=== PATIENT | female | born 1995 | race African-American/Black ===

== ENCOUNTER 2020-06-22 19:18 | Emergency (ER) | payer OTHER ==
[~2020-06-22] VITALS: Ht 167.6 cm; Wt 70.8 kg
--- NOTE | 2020-06-22 19:20 | NUR ---
BIB MOM C/O BIZARRE BEHAVIOR WITH FLIGHT OF IDEAS. "PLEASE CAN YOU TAKE ME TO MY DOCTOR". PT DENEIS SI/HI. PT CALM AND COOPERATIVE AT THIS TIME. PT REFUSING TO PROVIDE URINE SAMPLE AT THIS TIME. PLACE PT ON HOSPITAL GOWN, ALL BELONGINGS REMOVED AND PLACED IN A LOCKED HOSPITAL LOCKER. 1:1 SITTER AT BEDSIDE FOR PT SAFETY.
--- NOTE | 2020-06-22 19:43 | NUR ---
PT GOT OUT OF BED WALKING AROUND, REFUSING TO STAY IN BED AND KEEPS WANTING TO CALL VANDANA. PT REMAINS TO HAVE FLIGHTS OF IDEAS AND HEARING VOICES TELL HER TO GO SEE HER DOCTOR VANDANA WILKERSON. PT WAS VERY EMOTIONAL TAKING ABOUT HER GRANDMOTHER THAT HAD RECENTLY. PT WAS ASSISTED BACK TO BED AND AGREEING TO STAY IN BED AT THIS TIME. ER PA MADE AWARE OF PT BEHAVIOR.
--- NOTE | 2020-06-22 20:51 | NUR ---
PT PACING AROUND REFUSING TO GO BACK TO BED. PT CALLED 911 FROM THE ER PHONE. ASSISTED PT BACK TO BED. 1 WRIST RESTRAINTS APPLIED PER ER PA ORDER. ORDERS RECEIVED. WILL MEDICATE PT. PT REMIANS TO BE VERY UNCOOPERATIVE, REFUSING BLOOD DRAWN AND PROVIDE URINE SAMPLE. 1:1 SITTER REMAINS AT BEDSIDE. WILL CONTINUE TO MONITOR PT CLOSELY.
[2020-06-22] MEDS ORDERED: OLANZAPINE 10 MG VIAL IM ONE ×4 (20:58→23:00)
--- NOTE | 2020-06-22 21:32 | NUR ---
PT SCREAMING, UNCOOPERATIVE, CRYING. PT REFUSING TO COOPERATE AND BECAME COMBATIVE KICKING [address] PT ON BILATERAL WRIST RESTRAINTS ORDERED BY ER PA. WILL CONTINUE TO MONITOR PT. 1:1 SITTER REMAINS AT BEDSIDE FOR TP SAFETY.
[2020-06-22] MEDS ORDERED: LORAZEPAM INJ 2 MG/ML VIAL ONE (21:35)
[2020-06-22] MEDS ORDERED: diphenhydrAMINE HCL 50 MG/ML VIAL ONE (21:35)
[2020-06-22] MEDS ORDERED: diphenhydrAMINE HCL 50 MG/ML VIAL IM ONE (22:00)
[2020-06-22] MEDS ORDERED: LORAZEPAM INJ 2 MG/ML VIAL IM ONE (22:00)
--- NOTE | 2020-06-22 22:53 | NUR ---
PT REMAINS VERY UNCOOPERATIVE, SCREAMING, REFUSING BLOOD DRAW. ORDERS RECEIVED FROM ER DARRELL SANCHEZ. WILL MEDICATE PT ORDERED.
--- NOTE | 2020-06-22 23:04 | NUR ---
PT MEDICATED ORDERED.
[2020-06-22 23:54] LABS: BASOPHILS # (AUTO) 0.1 /CMM (0.0-0.2); BASOPHILS % (AUTO) 0.9 % (0.0-2.0); EOSINOPHILS % (AUTO) 0.5 % (0.0-6.0); HEMATOCRIT 33 % (33-45); HEMOGLOBIN 10.6 g/dL (11.5-14.8); LYMPHOCYTES % (AUTO) 17.6 % (20.0-44.0); MEAN CORPUSCULAR HGB CONC 32 g/dl (31.0-36.0); MEAN CORPUSCULAR VOLUME 78 fL (82-100); MONOCYTES # (AUTO) 0.6 /CMM (0.1-1.30); MONOCYTES % (AUTO) 10.4 % (2.0-12.0); NEUTROPHILS # (AUTO) 4.2 /CMM (1.8-8.9); NEUTROPHILS % (AUTO) 70.6 % (43.0-81.0); PLATELET COUNT (AUTO) 364 /CMM (150-450); RED BLOOD CELL COUNT(AUTO) 4.24 MIL/uL (4.0-5.2); WHITE BLOOD COUNT (AUTO) 5.9 K/uL (4.3-11.0)
--- NOTE | 2020-06-22 23:55 | NUR ---
CALL FROM LAB. RAPID COVID NEGATIVE.
[2020-06-23] LABS: CALCIUM, SERUM 9.3 mg/dL (8.5-10.1); CARBON DIOXIDE 24 mmol/L (21-32); CHLORIDE 103 mmol/L (98-107); CREATININE 0.9 mg/dL (0.6-1.3); GLUCOSE 99 mg/dL (74-106); POTASSIUM 3.4 mmol/L (3.5-5.1); SODIUM SERUM 138 mmol/L (136-145); UREA NITROGEN, BLOOD 12 mg/dL (7-18)
[2020-06-23 00:06] LABS: ALANINE AMINOTRANSFERASE 25 U/L (12-78); ALBUMIN 3.7 g/dL (3.4-5.0); ALCOHOL, BLOOD < 3 mg/dL (0-0); ALKALINE PHOSPHATASE 62 U/L (46-116); ASPARTATE AMINOTRANSFERASE 25 U/L (15-37); BILIRUBIN,DIRECT 0.1 mg/dL (0.0-0.2); BILIRUBIN,TOTAL 0.4 mg/dL (0.2-1.0); TOTAL PROTEIN, SERUM 8.1 g/dL (6.4-8.2)
[2020-06-23 00:07] LABS: ACETAMINOPHEN 0 ug/ml (10-30)
--- NOTE | 2020-06-23 01:52 | NUR ---
PT ASLEEP, NO ACUTE DISTRESS NOTED, ERSP EVEN AND UNLABORED. NO PAIN OR DISCOMFORT NOTED AT THIS TIME. 1:1 SITTER REMAINS AT BEDSIDE.
--- NOTE | 2020-06-23 02:30 | NUR ---
URINE COLLECTED AND SENT TO LAB
[2020-06-23 02:47] LABS: BILIRUBIN,URINE NEGATIVE (NEGATIVE); COLOR,URINE YELLOW (YELLOW); LEUKOCYTE ESTERASE ,URINE NEGATIVE (NEGATIVE); NITRITE, URINE NEGATIVE (NEGATIVE); PROTEIN,URINE NEGATIVE (NEGATIVE); UGLUCOSE NEGATIVE (NEGATIVE); UROBILINOGEN,URINE 0.2 EU/dL (0.2)
[2020-06-23 02:53] LABS: BACTERIA,URINE None seen /HPF (None Seen); MUCUS,URINE Few /LPF (None Seen); RBC,URINE 0-2 /HPF (0-2); SQUAMOUS EPITHELIAL CELL,UR Many /HPF (None Seen); WBC,URINE 0-2 /HPF (0-3)
--- NOTE | 2020-06-23 03:59 | NUR ---
PT ASLEEP, NO ACUTE DISTRESS NOTED, ERSP EVEN AND UNLABORED. NO PAIN OR DISCOMFORT NOTED AT THIS TIME. 1:1 SITTER REMAINS AT BEDSIDE.
--- NOTE | 2020-06-23 05:56 | NUR ---
PT ASLEEP, NO ACUTE DISTRESS NOTED, ERSP EVEN AND UNLABORED. NO PAIN OR DISCOMFORT NOTED AT THIS TIME. CALL LIGHT WITHIN REACH. WILL CONTINUE TO MONITOR.
--- NOTE | 2020-06-23 07:09 | NUR ---
REPORT GIVEN TO AM SHIFT BOOGIE TONEY.
[2020-06-23 07:15] VITALS: BP 120/73
--- NOTE | 2020-06-23 07:15 | NUR ---
ASSESSED PT ON BED AWAKE AND ALERT. PT ACCOMPANIED TO RESTROOM WITH SITTER, PT IS AAOX4, NOT IN RESPIRATORY DISTRESS, V/S STABLE. KEPT RESTED AND COMFORTABLE. WILL CONTINUE TO MONITOR.
--- NOTE | 2020-06-23 07:20 | NUR ---
PT STATED SHE WANTS TO GO HOME AND SHE IS NOT SUICIDAL OR HOMICIDAL AND JUST WANT TO GO HOME TO SEE HER DOCTOR. CRISIS BEAM SAW OPERATOR AWARE.
--- NOTE | 2020-06-23 07:44 | NUR ---
PT JOHANNE TAPIA TRIED TO STOP HER BUT PT PUSH THE SITTER AND TRY TO KICK HER. AWARE.
== END 2020-06-23 07:46 | disposition left against medical advice (07) ==
LOC: ER 19:21
DX: R46.2 Strange and inexplicable behavior (principal); R45.1 Restlessness and agitation; J45.909 Unspecified asthma, uncomplicated; G47.00 Insomnia, unspecified; Z20.822 Contact with and (suspected) exposure to COVID-19
CPT/HCPCS: 36415; 80048; 80076; 80299; 80307; 80320; 81001; 84703; 85025; 87426; 96372 ×2; 99285; C9803; J1200; J2060; J3490 ×2; G0480

== ENCOUNTER 2020-06-24 12:50 | Emergency (ER) | payer OTHER ==
[~2020-06-24] VITALS: Ht 172.7 cm; Wt 65.8 kg
--- NOTE | 2020-06-24 12:50 | NUR ---
PT BIB MOM C/O SUICIDAL IDEATION. NO PLAN SPECIFIC PLAN. PT IS AAOX3, NOT IN RESPIRATORY DISTRESS, V/S STABLE, KEPT RESTED AND COMFORTABLE. WILL CONTINUE TO MONITOR.
--- NOTE | 2020-06-24 13:10 | NUR ---
URINE SPECIMEN COLLECTED AND SENT TO LAB.
--- NOTE | 2020-06-24 13:24 | NUR ---
ER PHLEB AT BEDSIDE FOR BLOOD DRAW.
[2020-06-24 13:40] LABS: BASOPHILS # (AUTO) 0.1 /CMM (0.0-0.2); BASOPHILS % (AUTO) 1.2 % (0.0-2.0); EOSINOPHILS % (AUTO) 0.7 % (0.0-6.0); HEMATOCRIT 36 % (33-45); HEMOGLOBIN 11.4 g/dL (11.5-14.8); LYMPHOCYTES # (AUTO) 2.1 /CMM (0.8-4.8); LYMPHOCYTES % (AUTO) 31.1 % (20.0-44.0); MEAN CORPUSCULAR HGB CONC 32 g/dl (31.0-36.0); MEAN CORPUSCULAR VOLUME 79 fL (82-100); MONOCYTES # (AUTO) 0.7 /CMM (0.1-1.30); MONOCYTES % (AUTO) 10.1 % (2.0-12.0); NEUTROPHILS # (AUTO) 3.8 /CMM (1.8-8.9); NEUTROPHILS % (AUTO) 56.9 % (43.0-81.0); PLATELET COUNT (AUTO) 424 /CMM (150-450); RED BLOOD CELL COUNT(AUTO) 4.55 MIL/uL (4.0-5.2); WHITE BLOOD COUNT (AUTO) 6.7 K/uL (4.3-11.0)
[2020-06-24 13:45] LABS: BILIRUBIN,URINE SMALL (NEGATIVE); COLOR,URINE YELLOW (YELLOW); LEUKOCYTE ESTERASE ,URINE NEGATIVE (NEGATIVE); NITRITE, URINE NEGATIVE (NEGATIVE); PROTEIN,URINE TRACE mg/dl (NEGATIVE); UGLUCOSE NEGATIVE (NEGATIVE); UROBILINOGEN,URINE 0.2 EU/dL (0.2)
[2020-06-24 13:55] LABS: CALCIUM, SERUM 9.6 mg/dL (8.5-10.1); CARBON DIOXIDE 23 mmol/L (21-32); CHLORIDE 103 mmol/L (98-107); CREATININE 0.9 mg/dL (0.6-1.3); GLUCOSE 104 mg/dL (74-106); POTASSIUM 3.3 mmol/L (3.5-5.1); SODIUM SERUM 140 mmol/L (136-145); UREA NITROGEN, BLOOD 17 mg/dL (7-18)
[2020-06-24 14:01] LABS: ACETAMINOPHEN 0 ug/ml (10-30); ALANINE AMINOTRANSFERASE 28 U/L (12-78); ALCOHOL, BLOOD < 3 mg/dL (0-0); ALKALINE PHOSPHATASE 70 U/L (46-116); ASPARTATE AMINOTRANSFERASE 38 U/L (15-37); BILIRUBIN,DIRECT 0.1 mg/dL (0.0-0.2); BILIRUBIN,TOTAL 0.4 mg/dL (0.2-1.0); TOTAL PROTEIN, SERUM 8.4 g/dL (6.4-8.2)
[2020-06-24 14:20] LABS: BACTERIA,URINE Few /HPF (None Seen); RBC,URINE 0-2 /HPF (0-2); SQUAMOUS EPITHELIAL CELL,UR Many /HPF (None Seen); WBC,URINE 0-2 /HPF (0-3)
--- NOTE | 2020-06-24 15:31 | NUR ---
CALLED [facility] [phone]
--- NOTE | 2020-06-24 16:26 | NUR ---
2:20pm SW consult requested by ED RN Markie as patient presented to [facility] ED with suicidal ideation. Patient is a 24-year-old female. Patient is alert and oriented x3. Patient initially presented to [facility] ED on 06/22/2020 for bizarre behavior, patient was aggressive with ED staff and eloped from the facility on 06/23 approximately at 7am. Patient presented today with patients mother for medical clearance as patient is suicidal. Patient began to report to this SW that the patient was missing various things in her life. Patient reports that she was ready to let everything go. Patient was not able to explain what she meant to this. Patient reports having inconstant sleep and a poor appetite. Patient repeated several times throughout this assessment that I am tired of dealing with problems and people and kept stating I want to let everything go. When SW asked patient if she was suicidal patient reported that she was, when asked patients plan patient began to state, I am going to waste everyones time. Patient is not able to answer questions clearly. SW inquired regarding mental health diagnosis patient responded with self-diagnosis of wasting peoples time. Patient reported auditory hallucination of a voice telling the patient to calm down and to trust herself. Patient reported visual hallucinations of previous dreams she has had. Patient reported a history of psychiatric hospitalization approximately last year in [facility], patient could not give specific information regarding a hospital, diagnosis, and reported no one in her family knows about this. Patient and SW discussed voluntary hospitalization and patient was agreeable; however, patient did not want this SW to begin the referral process for her. Patient followed up stating I want to go home. I am afraid of being alone. Patient expressed wanting mother to be at bedside. Patient asked this SW to talk to Dr. Jean [phone], patients psychiatrist and SW attempted at bedside per patients request. SW could not speak with Dr. Jean. Patient then asked this SW to call a different number [phone] and this was patients mother. Patient then asked this SW to call [phone] because she was feeling unsafe at [facility] ED. SW asked the patient to elaborate and patient was not able to provide more information. Patient based on responses presented to be paranoid. Patients thought process was unclear. Patient expressed wanting mother to be at bedside. SW informed patient that due to COVID-19 protocols mother cannot be in the ED however SW will ask for a quick visit if allowed. Plan: SW to gather more concrete information from patients mother. SW remains available for all needs regarding this patient.
--- NOTE | 2020-06-24 16:39 | NUR ---
3pm SW met with patients mother to gather more collateral information. Patients mother reported to this SW that the patient is not herself. Patient reported that prior to patient presenting to [facility] ED on 06/22 patients mentor from [facility] Dr. Jean (therapist/professor) made a welfare check for this patient. Dr. Jean raised concerns to patients mother. Patients mother informed this SW that following patients initial visit on 06/22 patients mother made an appointment with [facility] for 06/24 at 9am. Patients mother reported patient expressed wanting to go get fresh air on the roof and mother became concerned for patients safety. Mother then received a text from patient stating that she did not want to follow through with [facility] appointment and would not return patients mothers call. Patients mother then received a call from Dr. Jean stating that the patient was at her home and Dr. Jean expressed more concerns regarding the patient. Patients mother brought the patient today 06/24 back to [facility] ED hoping a crisis weatherstrip machine operator would further evaluate the patient as the patient does not make sense and has raised several concerns to patients close network. SW provided active listening and acknowledgement regarding patient's mother's feelings. SW explained to patient's mother plan for next steps. Plan: SW to present findings with Dr. Rice regarding this SW assessment findings. SW to ask ED physician Dr. Rice and raw silk grader Gener if patient's mother can have a quick visit following strict COVID-19 protocols.
--- NOTE | 2020-06-24 16:41 | NUR ---
3:30pm SW spoke with Dr. Rice and SW presented this SW assessment findings. Dr. Rice in agreement with this SW and Dr. Vaz (initial ED physician) for psychology clinician to be called for further evaluation. Dr. Rice and ED content analyst Gener agreed patient's mother can visit with the patient for a short period following COVID-19 protocols to reassure patient that mother supports the patient. SW to arrange for patient's mother to meet with the patient for a short time.
--- NOTE | 2020-06-24 16:44 | NUR ---
YAMILKA asked biofuels engineering managerCristobal Valdez to call [employer] for further evaluation. biofuels engineering managerCristobal Valdez understood and called [employer] for further evaluation. Addendum: 06/24/20 at 1646 by STANTON PRATHER Time correction 3:30pm
--- NOTE | 2020-06-24 16:46 | NUR ---
3:30 pm SW arrange for patient's mother to meet with patient for a short time. Patient and mother agreeable that COVID-[address] and visit will be short. Mother also informed this SW that following this visit, mother will be waiting in the car while keypunch operators supervisor evaluate this patient. SW remains available for all needs regarding this patient.
[2020-06-24] MEDS ORDERED: LORAZEPAM 1 MG TABLET PO ONE (18:00)
[2020-06-24] MEDS ORDERED: LORAZEPAM 1 MG TABLET ONE (18:20)
--- NOTE | 2020-06-24 21:50 | NUR ---
faxed covid result to [facility] [phone] (fax number)
--- NOTE | 2020-06-24 22:03 | NUR ---
PT ACCEPTED AT [facility] ACCEPTING MD CHOW PHONE NUMBER FOR REPORT ROOM # [id number]-A
--- NOTE | 2020-06-24 22:07 | NUR ---
REPORT CALLED TO [facility] BOOGIE NOBLES. WILL CALL FOR TRANSPORT.
--- NOTE | 2020-06-24 22:24 | NUR ---
SPOKE TO SHIVANI FROM [facility] RES NUMBER IS [id number]
--- NOTE | 2020-06-24 22:38 | NUR ---
AMBULANCE [id number]
[2020-06-24 22:59] VITALS: BP 126/79
--- NOTE | 2020-06-24 23:29 | NUR ---
pipe testing technician AT BED SIDE TO [facility] THE PT
--- NOTE | 2020-06-24 23:38 | NUR ---
PT WAS TRANSFERRED TO [facility] VIA GURNEY IN STABLE CONDITION. ALL BELONGINGSPICKED UP BY THE patient relations liaison.
== END 2020-06-24 23:41 ==
LOC: ER 12:54
DX: F32.9 Major depressive disorder, single episode, unspecified (principal); R45.851 Suicidal ideations; F12.10 Cannabis abuse, uncomplicated; J45.909 Unspecified asthma, uncomplicated; D50.9 Iron deficiency anemia, unspecified; Z20.822 Contact with and (suspected) exposure to COVID-19
CPT/HCPCS: 36415; 80048; 80076; 80299; 80307; 80320; 81001; 84703; 85025; 87426; 99285; C9803; G0480

== ENCOUNTER 2022-10-26 22:20 | Emergency (ER) | payer OTHER ==
[~2022-10-26] VITALS: Ht 172.7 cm; Wt 65.8 kg
--- NOTE | 2022-10-26 22:45 | NUR ---
seen at , neg (covid/flu/strep/mono), c/o cough and swollen tonsils. fever in triage 101.0 orally. axo4. ambulatory. mother at bedside.
--- NOTE | 2022-10-26 22:52 | NUR ---
DR. AJ AT BEDSIDE
[2022-10-26] MEDS ORDERED: IPRATROPIUM NEB FS 0.5 MG/2.5 ML AMPUL.NEB NEB ONE (23:00)
[2022-10-26] MEDS ORDERED: IV NS 0.9% 1,000 ML IV ONE (23:00)
[2022-10-26] MEDS ORDERED: ALBUTEROL FS 2.5 MG/3 ML VIAL.NEB NEB ONE (23:00)
[2022-10-26] MEDS ORDERED: methylPREDNISolone SOD SUCC 125 MG/2ML VIAL IV ONE (23:00)
[2022-10-26] MEDS ORDERED: ACETAMINOPHEN ES 500 MG TABLET PO ONE (23:00)
--- NOTE | 2022-10-26 23:10 | NUR ---
20G IV STARTED ON L AC
[2022-10-26] MEDS ORDERED: methylPREDNISolone SOD SUCC 125 MG/2ML VIAL ONE (23:12)
[2022-10-26] MEDS ORDERED: ACETAMINOPHEN ES 500 MG TABLET ONE (23:12)
[2022-10-26] MEDS ORDERED: ONDANSETRON HCL/PF 4 MG/2 ML VIAL ONE (23:12)
--- NOTE | 2022-10-26 23:21 | NUR ---
MED ADMINISTERED ORDERED
--- NOTE | 2022-10-26 23:27 | NUR ---
RT CALLED FOR BREATHING TREATMENT
[2022-10-26] MEDS ORDERED: ONDANSETRON HCL/PF - ER 4 MG/2 ML VIAL IV ONE (23:30)
[2022-10-26] MEDS ORDERED: ALBUTEROL FS 2.5 MG/3 ML VIAL.NEB ONE (23:35)
[2022-10-26] MEDS ORDERED: IPRATROPIUM NEB FS 0.5 MG/2.5 ML AMPUL.NEB ONE (23:35)
--- NOTE | 2022-10-26 23:37 | NUR ---
RT AT BEDSIDE FOR BREATHING TREATMENT
--- NOTE | 2022-10-27 00:41 | NUR ---
DR. AJ AT BEDSIDE
[2022-10-27] MEDS ORDERED: PRED20TA PO (00:51)
--- NOTE | 2022-10-27 01:14 | NUR ---
Patient discharged to home in stable condition. Written and verbal after care instructions given. Patient verbalizes understanding of instruction.IV removed. Catheter intact and site benign. Pressure and 4x4 applied to site. No bleeding noted.
[2022-10-27 01:15] VITALS: BP 131/80
== END 2022-10-27 01:15 | disposition home or self-care (01) ==
LOC: ER 22:23
DX: J02.9 Acute pharyngitis, unspecified (principal); J45.901 Unspecified asthma with (acute) exacerbation
CPT/HCPCS: 99284; 96374; 96361; 96375; 94799; 94640; J2930; J2405